=== PATIENT | female | born 1980 | race African-American/Black ===

== ENCOUNTER 2016-11-29 05:54 | Emergency (ER) | payer BC | END 2016-11-29 06:26 | disposition home or self-care (01) | LOC: ER 05:54 | DX: R50.9 Fever, unspecified (principal); J20.9 Acute bronchitis, unspecified; J00 Acute nasopharyngitis [common cold]; J01.00 Acute maxillary sinusitis, unspecified; F17.210 Nicotine dependence, cigarettes, uncomplicated ==

== ENCOUNTER 2016-12-10 13:33 | Emergency (ER) | payer BC ==
[2016-12-10] MEDS ORDERED: PROPARACAINE 0.5% OP SOLN ONE (14:15)
== END 2016-12-10 14:38 | disposition home or self-care (01) ==
LOC: FASTR 13:33
DX: H10.022 Other mucopurulent conjunctivitis, left eye (principal); H00.014 Hordeolum externum left upper eyelid; F17.200 Nicotine dependence, unspecified, uncomplicated